=== PATIENT | male | born 1935 | race Caucasian/White ===

== ENCOUNTER 2016-09-25 08:14 | Emergency (ER) | payer OTHER, MEDICAID ==
[~2016-09-25] VITALS: Ht 154.9 cm; Wt 80.0 kg
[2016-09-25 08:16] VITALS: Ht 154.9 cm; Wt 80.0 kg
[2016-09-25 09:19] LABS: ADD UMIC YES; UR ASCORBIC ACID 40 mg/dL (NEGATIVE); UR BACTERIA FEW /HPF (NONE SEEN); UR BILIRUBIN (Dip) NEGATIVE (NEGATIVE); UR BLOOD (Dip) 3+ mg/dL (NEGATIVE); UR CLARITY CLOUDY (CLEAR); UR COLOR AMBER (YELLOW); UR GLUCOSE (Dip) 3+ mg/dL (NEGATIVE); UR KETONES (Dip) NEGATIVE (NEGATIVE); UR LEUKOCYTE ESTERASE (Dip) 3+ Leu/ul (NEGATIVE); UR MUCUS MODERATE /HPF (NONE SEEN); UR NITRITE (Dip) POSITIVE (NEGATIVE); UR RBC > 182 /HPF (0-5); UR SPECIFIC GRAVITY (Dip) 1.014 (1.003-1.030); UR SQUAMOUS EPITHELIAL CELL FEW /HPF (FEW); UR TOTAL PROTEIN (Dip) 3+ mg/dl (NEGATIVE); UR UROBILINOGEN (Dip) NEGATIVE (NEGATIVE); UR WBC CLUMPS MANY /HPF (NONE SEEN)
--- NOTE | 2016-09-25 09:29 | ERD ---
ER Documentation Chief Complaint Date/Time DATE: 09/25/16 TIME: 09:27 Chief Complaint DYSURIA X 4 DAYS HPI This is an 81-year-old male who presents to the emergency room with his daughter for evaluation of painful urination, frequent urination for the past 4 days. According to the patient he does not have any pain in his back or fever however he does have pain with urination and denies any penile discharge but does state that he noticed a small amount of blood in his urine yesterday. The patient has not been on any medication for his symptoms and came to the ER for evaluation. ROS All systems reviewed and are negative except as per history of present illness. PMhx/Soc Hx Cardiac Disorders: Yes (htn) Hx Miscellaneous Medical Probl: Yes (dm) Hx Alcohol Use: No Hx Substance Use: No Hx Tobacco Use: Yes Smoking Status: Never smoker Physical Exam Vitals Vital Signs Date Time Temp Pulse Resp B/P Pulse Ox O2 Delivery O2 Flow Rate FiO2 09/25/16 08:16 97.9 89 18 161/64 99 Physical Exam Const: No acute distress Head: Atraumatic Eyes: Normal Conjunctiva ENT: Normal External Ears, Nose and Mouth. Neck: Full range of motion..~ No meningismus. Resp: Clear to auscultation bilaterally Cardio: Regular rate and rhythm, no murmurs Abd: Soft, non tender, non distended. Normal bowel sounds Skin: No petechiae or rashes Back: No midline or flank tenderness Ext: No cyanosis, or edema Neur: Awake and alert Psych: Normal Mood and Affect Results 24 hrs Laboratory Tests Test 09/25/16 08:53 Urine Color [place] Urine Clarity CLOUDY Urine pH 5.0 Urine Specific [place] 1.014 Urine Ketones NEGATIVEmg/dL Urine Nitrite POSITIVEmg/dL Urine Bilirubin NEGATIVEmg/dL Urine Urobilinogen NEGATIVEmg/dL Urine Leukocyte Esterase 3+Justa/ul Urine Microscopic RBC > 182/HPF Urine Microscopic WBC > 182/HPF Urine Squamous Epithelial Cells FEW/HPF Urine Bacteria FEW/HPF Urine Mucus MODERATE/HPF Urine Hemoglobin 3+mg/dL Urine Glucose 3+mg/dL Urine Total Protein 3+mg/dl Current Medications Medications (Trade) Dose Ordered Sig/[place]ac[place] Route PRN Reason Start Time Stop Time Status Last Admin Dose Admin Ciprofloxacin (Cipro) 500 mg ONCE ONCE PO 09/25/16 09:30 09/25/16 09:31 UNV Procedures/MDM This 81-year-old male presents to the emergency room for evaluation of painful urination and frequent urination for the past 4 days. When I evaluated this patient he was nontoxic appearing, had no tachycardia, and was afebrile. The patient had no tenderness to palpation on my examination however her urinalysis does reveal nitrite positive urinary tract infection. The patient did have urine culture sent and the patient was given ciprofloxacin p.o. in the emergency room. He will be discharged home with a prescription for ciprofloxacin over the course of the next 2 weeks. I discussed the risk of tendon rupture with the patient and the patient's family and they verbalized understanding. Departure Diagnosis: Primary Impression: Acute cystitis Additional Impression: Dysuria Condition: Stable STEPHANIE RAMOS DO Sep 25, 2016 09:29
[2016-09-25] MEDS ORDERED: CIPR500T4 PO (09:30)
[2016-09-25] MEDS ORDERED: CIPROFLOXACIN 500 MG TAB PO ONE (09:30)
== END 2016-09-25 11:16 | disposition home or self-care (01) ==
LOC: E/R 08:14
DX: N30.00 Acute cystitis without hematuria (principal); I10 Essential (primary) hypertension; E11.9 Type 2 diabetes mellitus without complications; Z87.891 Personal history of nicotine dependence
CPT/HCPCS: 81001; 87086; 99283